=== PATIENT | female | born 1950 | race Caucasian/White ===

== ENCOUNTER 2016-10-09 09:06 | Day surgery (SDC) | payer BC ==
--- NOTE | ~2016-10-09 | EGD ---
EGD REPORT [facility] [address] [id number] NAME: RENATE MONTAÑO : [birth year] STATUS : REG [facility]#: [id number] AGE: 66 ADM/REG DATE : 10/09/16 MR#: [id number] REPORT SERV DATE: 10/09/16 DICTATED BY: INGE BEECRRIL DATE: 10/09/16 REPORT STATUS : Draft TRANSCRIBED BY: [facility] DATE: 10/09/16 Endoscopy Center Patient Name: Renate Montaño Date of : 1950 Attending MD: INGE BECERRIL MD Procedure Date No Time: 10/09/2016 Procedure: Colonoscopy Indications: Heme positive stool, Iron deficiency anemia, Weight loss Referring MD: DIPESH BOUCHER III Medicines: Propofol per Anesthesia Complications: No immediate complications. Procedure: Pre-Anesthesia Assessment: - ASA Grade Assessment: III - A patient with severe systemic disease. After I obtained informed consent, the scope was passed under direct vision. Throughout the procedure, the patient's blood pressure, pulse, and oxygen saturations were monitored continuously. The [id number] was introduced through the anus and advanced to the terminal ileum. The colonoscopy was performed without difficulty. The patient tolerated the procedure well. The quality of the bowel preparation was good. Findings: The perianal and digital rectal examinations were normal. The terminal ileum appeared normal. The colon (entire examined portion) appeared normal. Two sessile polyps were found in the cecum. The polyps were 1 to 2 mm in size. These polyps were removed with a cold biopsy forceps. Resection and retrieval were complete. A sessile polyp was found in the descending colon. The polyp was 2 mm in size. The polyp was removed with a cold biopsy forceps. Resection and retrieval were complete. Two sessile polyps were found in the distal descending colon. The polyps were 3 to 4 mm in size. These polyps were removed with a cold snare. Resection and retrieval were complete. A sessile polyp was found in the sigmoid colon. The polyp was 3 mm in size. The polyp was removed with a cold biopsy forceps. Resection and retrieval were complete. Multiple small and large-mouthed diverticula were found in the recto-sigmoid colon, in the sigmoid colon and in the descending colon. Non-bleeding internal hemorrhoids were found during retroflexion and were mild, small and Grade I (internal hemorrhoids that do not prolapse). Impression: - The examined portion of the ileum was normal. EGD REPORT [address] [place]. [address] NAME: RENATE MONTAÑO : [birth year] STATUS : REG [facility] PAT#: [id number] AGE: 66 ADM/REG DATE : 10/09/16 MR#: [id number] REPORT SERV DATE: 10/09/16 DICTATED BY: INGE BECERRIL DATE: 10/09/16 REPORT STATUS : Draft TRANSCRIBED BY: [employer] [facility] DATE: 10/09/16 - The entire examined colon is normal. - Two 1 to 2 mm polyps in the cecum. Resected and retrieved. - One 2 mm polyp in the descending colon. Resected and retrieved. - Two 3 to 4 mm polyps in the distal descending colon. Resected and retrieved. - One 3 mm polyp in the sigmoid colon. Resected and retrieved. - Diverticulosis in the recto-sigmoid colon, in the sigmoid colon and in the descending colon. - Non-bleeding internal hemorrhoids. Recommendation: - Patient has a contact number available for emergencies. The signs and symptoms of potential delayed complications were discussed with the patient. Return to normal activities tomorrow. Written discharge instructions were provided to the patient. - Return to previous diet. - Continue present medications. - Await pathology results. - Repeat colonoscopy in 3 - 5 years for surveillance based on pathology results. - Return to my office as previously scheduled. - Discharge patient to home. Procedure Code(s): --- Professional --- 88606, Colonoscopy, flexible, proximal to splenic flexure; with removal of tumor(s), polyp(s), or other lesion(s) by snare technique 24341, 59, Colonoscopy, flexible, proximal to splenic flexure; with biopsy, single or multiple Diagnosis Code(s): --- Professional --- K64.0, First degree hemorrhoids K57.30, Diverticulosis of large intestine without perforation or abscess without bleeding D12.5, Benign neoplasm of sigmoid colon D12.4, Benign neoplasm of descending colon D12.0, Benign neoplasm of cecum R19.5, Other fecal abnormalities D50.9, Iron deficiency anemia, unspecified R63.4, Abnormal weight loss CPT copyright 2013 [employer]. All rights reserved. EGD REPORT [facility] [address] [address] NAME: RENATE MONTAÑO : [birth year] STATUS : REG [facility] PAT#: [id number] AGE: 66 ADM/REG DATE : 10/09/16 MR#: [id number] REPORT SERV DATE: 10/09/16 DICTATED BY: INGE BECERRIL DATE: 10/09/16 REPORT STATUS : Draft TRANSCRIBED BY: [employer] DATE: 10/09/16 The codes documented in this report are preliminary and upon dramatic director review may be revised to meet current compliance requirements. Inge Becerril MD INGE BECERRIL MD 10/09/2016 2:15 PM This report has been signed electronically. Number of Addenda: 0 Note Initiated On: 10/09/2016 1:00 PM Scope Withdrawal Time 0 hours 24 minutes 50 seconds [id number] [place] [address]
--- NOTE | ~2016-10-09 | EGD ---
EGD REPORT [facility] [address] [id number] NAME: RENATE MONTAÑO : [birth year] STATUS : REG [facility]#: [id number] AGE: 66 ADM/REG DATE : 10/09/16 MR#: [id number] REPORT SERV DATE: 10/09/16 DICTATED BY: INGE BECERRIL DATE: 10/09/16 REPORT STATUS : Draft TRANSCRIBED BY: [facility] DATE: 10/09/16 Endoscopy Center Patient Name: Renate Montaño Date of : 1950 Attending MD: INGE BECERRIL MD Procedure Date No Time: 10/09/2016 Procedure: Upper GI endoscopy Indications: Iron deficiency anemia, Gastro-esophageal reflux disease, Heme positive stool Referring MD: DIPESH BOUCHER III Medicines: Propofol per Anesthesia Complications: No immediate complications. Procedure: Pre-Anesthesia Assessment: - ASA Grade Assessment: III - A patient with severe systemic disease. After obtaining informed consent, the endoscope was passed under direct vision. Throughout the procedure, the patient's blood pressure, pulse, and oxygen saturations were monitored continuously. The GIF [id number] was introduced through the mouth, and advanced to the third part of duodenum. The upper GI endoscopy was accomplished without difficulty. The patient tolerated the procedure well. Findings: Non-severe esophagitis with no bleeding was found in the lower third of the esophagus. A small hiatus hernia was present. as seen on retroflexion Diffuse mild inflammation characterized by congestion (edema) and erythema was found in the entire examined stomach. Biopsies were taken with a cold forceps for Helicobacter pylori testing. Localized mild inflammation characterized by congestion (edema) and erythema was found in the duodenal bulb. Biopsies were taken with a cold forceps for evaluation of celiac disease. And giardia, whipple's disease, and enteritis The 2nd part of the duodenum and 3rd part of the duodenum were normal. Biopsies were taken with a cold forceps for evaluation of celiac disease. And giardia, whipple's disease, and enteritis Impression: - Non-severe reflux esophagitis. - Hiatus hernia. - Gastritis. Biopsied. - Duodenitis. Biopsied. - Normal 2nd part of the duodenum and 3rd part of the duodenum. Biopsied. EGD REPORT [address] [address] NAME: RENATE MONTAÑO : [birth year] STATUS : REG [facility]#: [id number] AGE: 66 ADM/REG DATE : 10/09/16 MR#: [id number] REPORT SERV DATE: 10/09/16 DICTATED BY: INGE BECERRIL DATE: 10/09/16 REPORT STATUS : Draft TRANSCRIBED BY: [facility] DATE: 10/09/16 Recommendation: - Patient has a contact number available for emergencies. The signs and symptoms of potential delayed complications were discussed with the patient. Return to normal activities tomorrow. Written discharge instructions were provided to the patient. - Return to previous diet. - Continue present medications. - Use Prilosec (omeprazole) 40 mg PO BID. - take 30-60 minutes before breakfast and supper - Use Zantac (ranitidine) 300 mg PO daily. - Take at bedtime - Await pathology results. - Return to my office as previously scheduled. - Discharge patient to home. Procedure Code(s): --- Professional --- 13152, Esophagogastroduodenoscopy, flexible, transoral; with biopsy, single or multiple Diagnosis Code(s): --- Professional --- K21.0, Gastro-esophageal reflux disease with esophagitis K44.9, Diaphragmatic hernia without obstruction or gangrene K29.70, Gastritis, unspecified, without bleeding K29.80, Duodenitis without bleeding D50.9, Iron deficiency anemia, unspecified R19.5, Other fecal abnormalities CPT copyright 2013 [employer]. All rights reserved. The codes documented in this report are preliminary and upon newsstand vendor review may be revised to meet current compliance requirements. Inge Becerril MD INGE BECERRIL MD 10/09/2016 1:52 PM This report has been signed electronically. Number of Addenda: 0 Note Initiated On: 10/09/2016 12:24 PM Scope Withdrawal Time 0 hours 0 minutes 0 seconds [address] [place] [address]
[~2016-10-09 09:06] MED LIST: ADVIL PO; ASAB PO; AT25 PO; BEN25 PO; BUSPAR10 PO; CALCIUM PO; CALTRA600D PO; CENTRUM TAB1 TAB PO; COZAAR100 MG PO; CYMBALTA60 PO; DIOVAN320 MG PO; ESTRACE VAGIN42.5 GM V; EZFE 200200 MG PO; FLONASE NAS; ICAPS AREDS SO1 EACH PO; KDUR20 PO; L20 PO; L40 PO; MCZ25 PO; MIRAPEX250 PO; MULTIVIT/MIN PO; MUSCLE RELAXER PO; PRILOSEC OTC20 MG PO; PROAIR HFA INH; PROMEGA PO; SINGULAIR1 PO; TRAZ50 PO; ULTRAM50 PO; VITAMIN D1000 UNI1 PO; ZANAFLEX 4 MG TA4 MG PO
[2016-11-06] MEDS ORDERED: PRILO PO ×2 (00:24→00:30)
[2016-11-06] MEDS ORDERED: EZFE 200200 MG PO (00:25)
[2016-11-06] MEDS ORDERED: AT25 PO ×2 (00:25→00:31)
[2016-11-06] MEDS ORDERED: KDUR10 PO ×2 (00:25→00:30)
[2016-11-06] MEDS ORDERED: CYMBALTA60 PO ×2 (00:25→00:30)
[2016-11-06] MEDS ORDERED: ZANAFLEX 4 MG TA4 MG PO ×2 (00:26→00:31)
[2016-11-06] MEDS ORDERED: L80 PO ×2 (00:26→00:31)
[2016-11-06] MEDS ORDERED: BUSPAR10 PO (00:32)
[2016-11-06] MEDS ORDERED: MAXIMUM D3 PO ×2 (00:33→18:56)
[2016-11-06] MEDS ORDERED: ZITH250 PO (00:33)
[2016-11-06] MEDS ORDERED: PROAIR HFA INH (00:33)
[2016-11-06] MEDS ORDERED: FISH OIL PO (00:34)
[2016-11-06] MEDS ORDERED: ICAPS AREDS SO1 EACH PO (00:34)
[2016-11-06] MEDS ORDERED: *UNABLE1 (00:36)
[2016-11-06] MEDS ORDERED: VENTOLIN HFA INH (18:54)
[2016-11-06] MEDS ORDERED: FISH OIL OTC PO (18:55)
[2016-11-06] MEDS ORDERED: IRON OTC PO (18:56)
[2016-11-06] MEDS ORDERED: ALLEGRA180 PO (18:56)
[2016-11-06] MEDS ORDERED: CLEAR EYE1 OPH (18:57)
[2016-11-06] MEDS ORDERED: PRILOSEC40 MG PO (18:57)
[2016-11-06] MEDS ORDERED: ZANTAC300 MG PO (18:57)
[2016-11-06] MEDS ORDERED: COZAAR100 MG PO (18:58)
[2016-11-06] MEDS ORDERED: KLOR-CON M1010 MEQ PO (18:58)
[2016-11-06] MEDS ORDERED: FOSAMAX70 MG PO (18:59)
[2016-11-07] MEDS ORDERED: FISH-EPA1000 MG PO (13:24)
[2016-11-07] MEDS ORDERED: FERROUS SULF325 M1 PO (13:24)
[2016-11-07] MEDS ORDERED: L20 PO (14:10)
== END 2016-10-09 23:59 | disposition home health service (06) ==
LOC: DMU 09:06
PROVIDERS: Internal Medicine Gastroenterology
PROC: 0DBM8ZZ Excision of Descending Colon, Via Natural or Artificial Opening Endoscopic (ICD-10-PCS; 2016-10-09)
PROC: 0DB68ZX Excision of Stomach, Via Natural or Artificial Opening Endoscopic, Diagnostic (ICD-10-PCS; 2016-10-09)
PROC: 0DB98ZX Excision of Duodenum, Via Natural or Artificial Opening Endoscopic, Diagnostic (ICD-10-PCS; 2016-10-09)
PROC: 0DBH8ZX Excision of Cecum, Via Natural or Artificial Opening Endoscopic, Diagnostic (ICD-10-PCS; principal; 2016-10-09 10:00)
PROC: 0DBN8ZX Excision of Sigmoid Colon, Via Natural or Artificial Opening Endoscopic, Diagnostic (ICD-10-PCS; 2016-10-09 10:00)
PROC: 0DBM8ZX Excision of Descending Colon, Via Natural or Artificial Opening Endoscopic, Diagnostic (ICD-10-PCS; 2016-10-09 10:00)
DX: D12.0 Benign neoplasm of cecum (principal); D12.5 Benign neoplasm of sigmoid colon; K29.50 Unspecified chronic gastritis without bleeding; K57.30 Diverticulosis of large intestine without perforation or abscess without bleeding; K29.80 Duodenitis without bleeding; K21.0 Gastro-esophageal reflux disease with esophagitis; K64.0 First degree hemorrhoids; K44.9 Diaphragmatic hernia without obstruction or gangrene; D50.9 Iron deficiency anemia, unspecified; I10 Essential (primary) hypertension; J45.909 Unspecified asthma, uncomplicated; G47.30 Sleep apnea, unspecified; F41.9 Anxiety disorder, unspecified; Z88.0 Allergy status to penicillin; Z79.899 Other long term (current) drug therapy; Z90.49 Acquired absence of other specified parts of digestive tract; Z98.41 Cataract extraction status, right eye; Z98.42 Cataract extraction status, left eye; Z90.710 Acquired absence of both cervix and uterus; Z98.890 Other specified postprocedural states
CPT/HCPCS: 88305; 88342